=== PATIENT | male | born 1950 | race Caucasian/White ===

== ENCOUNTER 2022-05-19 09:09 | Emergency (ER) | payer MEDICARE ==
[2022-05-19 10:02] LABS: #Basophils 0.1 10x3/uL (0.0-0.2); #Eosinphils 0.1 10x3/uL (0.0-0.5); #Monocytes 0.7 10x3/uL (0.0-1.1); #Neutrophils 6.4 10x3/uL (1.5-8.4); %Basophils 0.6 % (0.0-2.0); %Eosinophils 1.1 % (0.0-6.0); %Lymphocytes 13.7 % (18.0-47.0); %Monocytes 7.8 % (0.0-10.0); %Neutrophils 76.2 % (40.0-75.0); Hemoglobin 15.8 g/dL (13.5-17.5); Mean Corpuscular HGB CONC 34.3 g/dL (32.0-36.0); Mean Corpuscular Hemoglobin 32.8 pg (27.0-33.0); Mean Corpuscular Volume 95.6 fl (81.2-95.1); Mean Platelet Volume 9.9 fl (7.4-10.4); Platelet Count 245 10x3/uL (150-450); RBC Distribution Width 12.4 % (11.5-14.5); Red Blood Cell (RBC) Count 4.82 10x6/uL (4.32-5.72); White Blood Cell (WBC) Count 8.4 10x3/uL (3.5-10.5)
[2022-05-19 10:12] LABS: PTT 27.6 sec (22.0-33.0)
[2022-05-19 10:16] LABS: ALT (SGPT) 38 U/L (8-55); AST (SGOT) 28 U/L (5-34); Albumin 4.4 g/dL (3.4-4.8); Alkaline Phosphatase 112 U/L (40-110); Anion Gap 12 mmol/L (10-20); BUN (Urea Nitrogen) 17 mg/dL (8.4-25.7); Bilirubin, Total 1.1 mg/dL (0.2-1.2); Calc. Creatinine Clearance 0 mL/min (70-130); Calcium 9.7 mg/dL (7.8-10.44); Carbon Dioxide 27 mmol/L (23-31); Chloride 102 mmol/L (98-107); Estimated GFR 65; Globulin 2.7 g/dL (2.4-3.5); Glucose 119 mg/dL (80-115); Potassium 4.2 mmol/L (3.5-5.1); Protein, Total 7.1 g/dL (5.8-8.1); Sodium 137 mmol/L (136-145)
[2022-05-19 10:21] LABS: Lipase Less than 4 U/L (8-78)
[2022-05-19 10:42] LABS: PTT 27.9 sec (22.0-33.0)
[2022-05-19] MEDS ORDERED: niCARdipine 25 MG/10 ML VIAL ONE (11:22)
[2022-05-19] MEDS ORDERED: Thiamine HCl 200 MG/2 ML VIAL ONE (11:22)
[2022-05-19] MEDS ORDERED: Magnevist 469MG/ML 20 ML VIAL ONE (15:41)
[2022-05-19 17:23] LABS: SARS-CoV-2 NAA Rapid Test Not Detected (NotDetected)
== END 2022-05-19 18:17 | disposition short-term general hospital (02) ==
LOC: CSHERS 09:09
DX: S06.300A Unspecified focal traumatic brain injury without loss of consciousness, initial encounter (principal); I10 Essential (primary) hypertension; Z20.822 Contact with and (suspected) exposure to COVID-19; W18.30XA Fall on same level, unspecified, initial encounter
CPT/HCPCS: 36415; 70450; 70553; 71045; 72125; 80053; 83605; 83690; 84484; 85025; 85610; 85730; 93005; 94760; J3411; U0002